=== PATIENT | female | born 2005 | race Caucasian/White ===

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

== ENCOUNTER 2023-05-25 11:05 | Emergency (ER) | payer OTHER ==
[~2023-05-25] VITALS: Ht 157.5 cm; Wt 46.9 kg
[~2023-05-25 11:05] MED LIST: ALEVE220 M1 PO; GOODY1 PO; MEDROL DOSEPAK4 MG PO; MIRALAX17 GM PO; PANTOPRAZOLE 40MG TA PO; PEPCID40 MG PO; TRIA0.1C19 TOP
[2023-05-25 11:14] VITALS: TEMP 98.3
[2023-05-25] MEDS ORDERED: GI COCKTAIL-HYOSCYAMINE 30 ML ML PO ONE ×2 (11:39→11:47)
[2023-05-25] MEDS ORDERED: IBUPROFEN 800 MG TAB PO ONE ×2 (11:40→11:48)
[2023-05-25] MEDS ORDERED: AMOX500C85 PO (13:44)
[2023-05-25 14:00] VITALS: BP 113/75
== END 2023-05-25 14:00 | disposition home or self-care (01) ==
LOC: ED 11:05
DX: J02.9 Acute pharyngitis, unspecified (principal); K21.9 Gastro-esophageal reflux disease without esophagitis; R11.2 Nausea with vomiting, unspecified
CPT/HCPCS: 87077; 87081; 87185; 87502; 87635; 87651; 99283; U0003